=== PATIENT | male | born 1975 | race Caucasian/White ===

== ENCOUNTER → 2017-11-10 | Outpatient (CLI) | payer BC ==
--- NOTE | 2017-11-10 11:43 | US ---
EXAMINATION TYPE: US liver DATE OF EXAM: 11/10/2017 COMPARISON: NONE CLINICAL HISTORY: 42-year-old male R74.8 Abn levels serum enzymes. TECHNIQUE: Multiple sonographic images of the right upper quadrant are obtained. FINDINGS: EXAM MEASUREMENTS: Liver Length: 17.1 cm Gallbladder Wall: 0.2 cm CBD: 0.4 cm Right Kidney: 10.1 x 5.0 x 4.7 cm Pancreas: Only portions of the pancreatic neck and body are seen due to shadowing from bowel gas. Liver: Limited intercostal views due to shadowing from bowel gas. Liver is upper limits of normal in size at 17.1 cm. No focal lesion seen. Gallbladder: Anterior gallbladder wall polyp measuring 8 mm. No abnormal gallbladder distention, wall thickening, pericholecystic fluid, or shadowing calculi. Evidence for sonographic Cortez's sign: no CBD: wnl Right Kidney: No hydronephrosis IMPRESSION: 1. An 8 mm anterior gallbladder wall polyp. Six-month follow-up gallbladder ultrasound recommended. 2. Some limitations in assessment of the liver and pancreas.
== END | disposition home or self-care (01) ==
LOC: RADUSWWP 08:14
PROVIDERS: ATTEND Family Medicine
DX: K82.4 Cholesterolosis of gallbladder (principal)
CPT/HCPCS: 76705

== ENCOUNTER → 2018-06-23 | Outpatient (CLI) | payer BC ==
--- NOTE | 2018-06-23 09:29 | US ---
EXAMINATION TYPE: US gallbladder DATE OF EXAM: 06/23/2018 COMPARISON: US 11/10/2017 CLINICAL HISTORY: K82.4 cholesterolosis of gallbladder. EXAM MEASUREMENTS: Liver Length: 15.7 cm Gallbladder Wall: 0.2 cm CBD: 0.5 cm Right Kidney: 12.3 x 4.3 x 4.5 cm Pancreas: Obscured by bowel gas Liver: There is increased echogenicity of the hepatic parenchyma with diminished visualization of th e portal triads most commonly relating to hepatic steatosis and limiting evaluation for underlying he patic masses. Gallbladder: Non-mobile echogenic area visualized measuring 0.7 cm, probable gallbladder polyp. Evidence for sonographic Cortez's sign: No CBD: 0.5 cm Right Kidney: No hydronephrosis or masses seen IMPRESSION: 1. Stability of the approximately 7 mm nonshadowing nondependent gallbladder polyp in comparison to t he exam of 2018. Annual surveillance is recommended for polyps of of this size. 2. Findings suggesting mild degree hepatic steatosis. Correlation with liver function tests is recomm ended. 3. Obscuration of the pancreas by overlying bowel gas.
== END | disposition home or self-care (01) ==
LOC: RADUSWWP 08:51
PROVIDERS: ATTEND Family Medicine
DX: K82.4 Cholesterolosis of gallbladder (principal)
CPT/HCPCS: 76705

== ENCOUNTER → 2019-04-29 | Outpatient (CLI) | payer BC ==
--- NOTE | 2019-04-29 08:56 | US ---
EXAMINATION TYPE: US abdomen limited DATE OF EXAM: 04/29/2019 COMPARISON: 06/23/2018 CLINICAL HISTORY: K82.4 Cholesterolosis of Gallbladder. elevated lft's, assess liver and GB, no sympt oms EXAM MEASUREMENTS: Liver Length: 18.5 cm Gallbladder Wall: 0.2 cm CBD: 0.4 cm Right Kidney: 11.0 x 4.6 x 5.3 cm *bowel gas limits study Pancreas: wnl in the visualized portions. Liver: Limited assessment. There is increased echogenicity of the hepatic parenchyma with diminished visualization of the portal triads most commonly relating to hepatic steatosis and limiting evaluati on for underlying hepatic masses. Gallbladder: 0.8cm polyp seen on anterior wall Evidence for sonographic Cortez's sign: no CBD: wnl Right Kidney: wnl IMPRESSION: 1. Very minimal interval growth of the gallbladder polyp measuring 8 mm and previously measuring 7 mm . Continued annual surveillance is recommended. 2. Findings again suggest underlying mild degree hepatic steatosis.
== END | disposition home or self-care (01) ==
LOC: RADUSWWP 06:56
PROVIDERS: ATTEND Family Medicine
DX: K82.4 Cholesterolosis of gallbladder (principal)
CPT/HCPCS: 76705

== ENCOUNTER → 2020-05-18 | Outpatient (CLI) | payer BC ==
--- NOTE | 2020-05-18 09:30 | US ---
EXAMINATION TYPE: US gallbladder DATE OF EXAM: 05/18/2020 COMPARISON: Multiple US's CLINICAL HISTORY: K82.4. EXAM MEASUREMENTS: Liver Length: 14.9 cm Gallbladder Wall: 0.3 cm CBD: 0.4 cm Right Kidney: 12.3 x 4.5 x 5.8 cm Pancreas: not well visualized due to midline bowel gas Liver: difficult to penetrate Gallbladder: 0.6 cm polyp appears adhered to wall. Evidence for sonographic Cortez's sign: No CBD: wnl Right Kidney: soft tissue hypoechoic area in sinus measures 1.8 x 1.5 x 1.9 cm. Not clearly evident previously. Recommend CT and evaluation. IMPRESSION: 1. Gallbladder polyp appears stable. 2. New hypoechoic upper pole right renal sinus finding. Recommend contrast CT for additional evaluati on
== END ==
LOC: RADUSWWP 08:18
PROVIDERS: ATTEND Family Medicine
DX: K82.4 Cholesterolosis of gallbladder (principal); N28.89 Other specified disorders of kidney and ureter
CPT/HCPCS: 76705

== ENCOUNTER → 2020-06-11 | Outpatient (CLI) | payer BC ==
--- NOTE | 2020-06-11 23:12 | CT ---
EXAMINATION TYPE: CT abdomen wo/w con DATE OF EXAM: 06/11/2020 COMPARISON: Limited abdominal ultrasound May 18, 2020 HISTORY: Abn US, renal cysts CT DLP: 2527.8 mGycm, Automated Exposure Control for Dose Reduction was Utilized. CONTRAST: CT scan of the abdomen is performed without oral and without and with IV Contrast, patient injected w ith 100 mL of Isovue 300. FINDINGS: LUNG BASES: No significant abnormality is appreciated. LIVER/GB: Visualized liver is diffusely low dense consistent with fatty infiltration on noncontrast C T. This correlates with ultrasound. PANCREAS: No significant abnormality is seen. SPLEEN: Splenomegaly is seen measuring 17.4 cm axial image 24 series 3. Small splenule in splenic hil um anteriorly axial image 28. ADRENALS: No significant abnormality is seen. KIDNEYS: No renal stones are seen. Symmetric cortical medullary uptake and excretion without concern ing solid or cystic renal mass or hydronephrosis seen bilaterally with particular attention to upper pole right kidney and area of concern on recent ultrasound. BOWEL: Suboptimal evaluation without enteric contrast. Stomach poorly distended and thus suboptimally evaluated. No suspicious small or large bowel dilatation. LYMPH NODES: No greater than 1cm abdominal lymph nodes are appreciated. OSSEOUS STRUCTURES: Transitional type vertebra lumbosacral junction. OTHER: No significant additional abnormality is seen. IMPRESSION: No concerning solid or cystic renal mass with attention to right kidney upper pole at ar ea of ultrasound concern.
== END | disposition home or self-care (01) ==
LOC: RADCTMAIN 18:25
PROVIDERS: ATTEND Family Medicine
DX: N28.1 Cyst of kidney, acquired (principal)
CPT/HCPCS: 74170; Q9967

== ENCOUNTER → 2022-09-30 | Outpatient (CLI) | payer BC ==
--- NOTE | 2022-10-01 08:24 | CA ---
Transthoracic Echo Report Name: Julio C Leal Age: 47 Gender: M : 1975 Exam Date: 09/30/2022 11:35 Exam Location: [facility] Ht (in): 71 Wt (lb): 280 Ordering Physician: Homer Montero MD Attending/Referring Phys: Registered Nurse Cardiac Starr [place] RDCS Procedure CPT: Indications: R55 Syncope Cardiac Hx: Technical Quality: technically difficult study Contrast 1: Total Dose (mL): Contrast 2: Total Dose (mL): MEASUREMENTS (Male / Female) Normal Values 2D ECHO LV Diastolic Diameter PLAX 4.4 cm 4.2 - 5.9 / 3.9 - 5.3 cm LV Systolic Diameter PLAX 3.2 cm IVS Diastolic Thickness 1.1 cm 0.6 - 1.0 / 0.6 - 0.9 cm LVPW Diastolic Thickness 1.3 cm 0.6 - 1.0 / 0.6 - 0.9 cm LV Relative Wall Thickness 0.5 RV Internal Dim ED PLAX 3.6 cm LA Volume 47.5 cm??? 18 - 58 / 22 - 52 cm??? M-MODE Aortic Root Diameter MM 3.6 cm LA Systolic Diameter MM 4.4 cm LA Ao Ratio MM 1.2 AV Cusp Separation MM 2.1 cm DOPPLER AV Peak Velocity 124.9 cm/s AV Peak Gradient 6.2 mmHg AV Mean Velocity 102.9 cm/s AV Mean Gradient 4.4 mmHg AV Velocity Time Integral 23.5 cm LVOT Peak Velocity 118.3 cm/s LVOT Peak Gradient 5.6 mmHg LVOT Velocity Time Integral 23.6 cm MV Area PHT 3.9 cm??? Mitral E Point Velocity 79.3 cm/s Mitral A Point Velocity 87.9 cm/s Mitral E to A Ratio 0.9 MV Deceleration Time 197.0 ms MV E' Velocity 9.6 cm/s Mitral E to MV E' Ratio 8.2 TR Peak Velocity 188.4 cm/s TR Peak Gradient 14.2 mmHg Right Ventricular Systolic Press 18.3 mmHg FINDINGS Left Ventricle Normal Left ventricular size, wall thickness, systolic function with no obvious regional wall motion abnormalities. Left ventricular ejection fraction is estimated at 55-60 %. Right Ventricle Mild right ventricular dilatation. Right ventricular systolic pressure within normal limits. Right Atrium Normal right atrial size. Left Atrium Normal left atrial size. Mitral Valve Structurally normal mitral valve. No mitral stenosis, regurgitation or prolapse. Aortic Valve Aortic valve leaflets could not be identified due to technically difficult study. No aortic valve stenosis or regurgitation. Tricuspid Valve Structurally normal tricuspid valve. Mild tricuspid regurgitation. Pulmonic Valve Structurally normal pulmonic valve. Trace pulmonic regurgitation. Pericardium Minimal pericardial effusion (normal variant). Aorta Normal size aortic root and proximal ascending aorta. CONCLUSIONS Technically difficult study. Left ventricular ejection fraction is estimated at 55-60 %. No obvious regional wall motion abnormalities. No significant valvular heart disease No significant chamber size abnormality No prior echo to compare with Previewed by: Dr Daren Breen (Electronically Signed) Final Date: 30 September 2022 15:09
== END | disposition home or self-care (01) ==
LOC: RADECHMAIN 11:30
PROVIDERS: ATTEND Family Medicine
DX: R55 Syncope and collapse (principal)
CPT/HCPCS: 93306